=== PATIENT | male | born 1980 | race Caucasian/White ===

== ENCOUNTER → 2016-07-23 | Outpatient (CLI) | payer BC ==
[~2016-07-23] MED LIST: NS 100 ML IV 100 ML IV ONE
--- NOTE | 2016-07-23 14:03 | CT ---
HISTORY: pelvic and perineal pain numbness to groin/scrotal area pain during sex Study: CT pelvis with contrast Comparison: None Technique: Multiple axial images of pelvis were obtained after the administration of IV contrast. Oral contras t was also given. Dose reduction techniques including Automated Exposure Control (AEC) and adjustmen t of mA and kV were utilized. Findings: The soft tissues and osseous structures are normal. The vascular structures are unremarkable. No pat hologically enlarged lymph nodes are identified. The visualized intrapelvic contents are unremarkabl e. Normal appendix. No free fluid. Normal urinary bladder. Normal-sized prostate gland. IMPRESSION: 1. Unremarkable CT of the pelvis. Reported By:
== END | disposition home or self-care (01) | DRG 392 ==
LOC: RAD 10:23
PROVIDERS: ATTEND Nurse Practitioner Family
DX: R10.2 Pelvic and perineal pain (principal); R20.2 Paresthesia of skin; R37 Sexual dysfunction, unspecified; F52.21 Male erectile disorder
CPT/HCPCS: 72193; A4222